=== PATIENT | female | born 1950 | race Caucasian/White ===

== ENCOUNTER → 2016-07-22 | Outpatient (CLI) | payer MEDICARE, BC ==
[~2016-07-22] MED LIST: BENADRYL ALLERG25 MG PO; BIOTIN1000 MCG PO; CALTRATE 600 WI1 TAB PO; CENTRUM SILVER1 EAC4 PO; COLACE100 MG PO; FEOSOL325 MG; FISH OIL 1,0001 EAC1 PO; FLAX SEED OIL1 EACH PO; GLUCOSAMINE S1000 MG PO; MUCUS DM MAX T1 EACH PO; NORCO 5-325 TA1 EACH PO; PRILOSEC20 MG PO; PROBIOTIC1 EAC4 PO; TYLENOL EXTRA500 MG PO; VITAMIN C1000 MG PO; ZINC50 M1 PO; ZYRTEC10 M3 PO; [UNRECOGNIZED DRUG - OTHER] PO
== END | disposition disaster alternative care site (69) ==
LOC: GBCOE 08:53
DX: Z12.31 Encounter for screening mammogram for malignant neoplasm of breast (principal)
CPT/HCPCS: G0202

== ENCOUNTER 2016-09-18 17:28 | Emergency (ER) | payer MEDICARE, BC ==
--- NOTE | ~2016-09-18 | ER ---
PATIENT'S NAME: XOCHITL ANG [facility] AGE: 66 Y [address] ROOM: [place], [place] [address] LOCATION: ED ADMIT DATE: 09/18/2016 ER/Outpatient Report DISCHARGE DATE: 09/18/2016 FAMILY PHYSICIAN: Scarlett Le MD ATTENDING PHYSICIAN: Royce Kebede Time of Arrival: 1728 hours. Time of Evaluation: 1735 hours. CHIEF COMPLAINT: Right 4th digit swollen and tender. HISTORY OF PRESENT ILLNESS: This is a 66-year-old female who presents to the ER, who states that she has noticed swelling and tenderness to the distal aspect of her right 4th digit. The patient states she has injured it in the past and had to have a pin placed in there. She states that every once in a while after she bumps the finger, it will become swollen. She states that sometimes she can get pus out of it and the swelling usually goes away. She states the last few days she has not been able to get any pus out of it, and has become more swollen and red. She did see her primary care physician for it today at her annual physical. The patient states that they did do an x-ray today of it and they wanted her to see an orthopedic. They did initially call Dr. Torres's office, and he would like her to see a hand specialist and they did call [facility]. The patient states that she went home from the doctor's office. [facility] states they could not get her in for 2 weeks, and told her since it was red and swollen that she should come to the emergency room. The patient states she has not been running any fevers. The patient states that she has no other problems at this time. ALLERGIES: NONE. MEDICATIONS: Please see medication list in nurse's notes. PAST MEDICAL HISTORY: Hysterectomy and a right 4th digit pinning. SOCIAL HISTORY: Denies smoking, drug, or alcohol use. REVIEW OF SYSTEMS: CONSTITUTIONAL: Denies any change in weight or fatigue. MUSCULOSKELETAL: Complaining of right 4th finger pain. PATIENT'S NAME: XOCHITL ANG [facility] AGE: 66 Y [address] ROOM: [place], [place] [address] LOCATION: [facility] ADMIT DATE: 09/18/2016 ER/Outpatient Report DISCHARGE DATE: 09/18/2016 FAMILY PHYSICIAN: Scarlett Le MD ATTENDING PHYSICIAN: Royce Kebede SKIN: Has swelling and redness noted to the distal aspect of her right 4th finger. PHYSICAL EXAMINATION: VITAL SIGNS: Height 5 feet 5 inches stated, weight 84.1 kg taken, blood pressure 155/77, pulse 107, respirations 16, temperature 98.3 degrees tympanically, and saturations 96% on room air. [place] Coma Score is 15. GENERAL: Alert, calm, well-developed female, in mild distress. LUNGS: Clear to auscultation bilaterally. No wheezes or crackles. HEART: Slightly tachycardic. Normal rhythm. EXTREMITIES: No clubbing or cyanosis. The distal aspect of her right 4th digit is swollen from the distal knuckle to the tip of her finger. It is erythematic. It is tender to palpate as well. No active drainage noted to the area. LABORATORY DATA AND X-RAYS: None were done. IMPRESSION: Slight abscess to the distal right 4th digit. ASSESSMENT AND PLAN: Discussed the patient's care with Dr. Kebede. Dr. Kebede also evaluated the patient. We did have the patient sign a consent for incision and drainage of the right distal 4th digit. I did cleanse the base of the finger with Betadine and did a digital block using 1% lidocaine. Once the finger was anesthetized, I did Betadine the tip of her right finger. I used a #11 blade and made small incisions around the nail of the right finger and no purulent drainage came from those areas. I did make a small incision to the fat pad of her ring finger and did get a moderate amount of purulent drainage from the area. The patient did tolerate all this well. We did cleanse the area and placed antibiotic ointment and bandage to the area. I will dismiss her to home with a prescription for Bactrim to use as directed. She needs to keep the finger clean and covered. She needs to monitor the skin closely, and I would like her to follow up with her primary care physician for followup care, or I would like her to see her orthopedic as soon as possible. The patient understands and agrees with care. DIXON FELDMAN PA-C FOR ROYCE KEBEDE DO ACJ/modl PATIENT'S NAME: XOCHITL ANG [facility] AGE: 66 Y [address] ROOM: [place] [id number] LOCATION: ED ADMIT DATE: 09/18/2016 ER/Outpatient Report DISCHARGE DATE: 09/18/2016 FAMILY PHYSICIAN: Scarlett Le MD ATTENDING PHYSICIAN: Royce Kebede /[id number] d: 09/19/16 0036 t: 09/24/16 1901, OUTPATIENT REPORT
== END 2016-09-18 18:20 | disposition disaster alternative care site (69) ==
LOC: GMED 17:28
PROC: 0H9FXZZ Drainage of Right Hand Skin, External Approach (ICD-10-PCS; principal; 2016-09-18)
DX: L02.511 Cutaneous abscess of right hand (principal); Z88.0 Allergy status to penicillin; Z88.1 Allergy status to other antibiotic agents